=== PATIENT | male | born 1990 | race African-American/Black ===

== ENCOUNTER → 2025-09-03 15:00 | Outpatient (CLI) | payer OTHER, SELFPAY ==
--- NOTE | 2025-09-03 15:06 | DI.RAD.S_ITS ---
PROCEDURE: XR HAND LT MIN 3V INDICATIONS: PAIN TECHNIQUE: 3 views of the hand(s) acquired. COMPARISON: None. FINDINGS: Bones: No fractures or dislocations. Carpal bones are normally aligned. Lucent 1.7 cm lesion in the mid 5th proximal phalanx diaphysis with prominent trabecula. No associated soft tissue mass or pathologic fracture. Mildly expansile. Soft tissues: No suspicious soft tissue calcifications. IMPRESSION: No acute fracture. 1.7 cm circumscribed lucent lesion in the 5th proximal phalanx diaphysis. No obvious soft tissue component or pathologic fracture. Given the location and imaging features, this probably represents an enchondroma. No concerning features are present. Dictated by: Maribel Sahu M.D. on 09/04/2025 at 12:36 Approved by: Maribel Sahu M.D. on 09/04/2025 at 12:44
== END ==
PROVIDERS: Referring Provider Chiropractor; Visit Provider Chiropractor
DX: M13.842 Other specified arthritis, left hand (principal); M89.9 Disorder of bone, unspecified
CPT/HCPCS: 73130